=== PATIENT | female | born 1980 | race Caucasian/White ===

== ENCOUNTER 2016-12-19 12:50 | Emergency (ER) | payer MEDICARE ==
[~2016-12-19] VITALS: Ht 162.6 cm; Wt 143.8 kg
[~2016-12-19 12:50] MED LIST: ACYCLOVIR PO; ALBUTEROL17 GM INH; BACTRIM DS TABL1 TA1 PO; DICLOFENAC PO; DOXYCYCLINE HY100 M1 PO; FLEXERIL PO; FLEXERIL10 M1 PO; FLEXERIL10 MG PO; FLONASE16 GM; IBUPROFEN PO; IBUPROFEN800 MG PO; KEFLEX500 M1 PO; KEFLEX500 MG PO; MEDROL PO; MOBIC PO; NAPROSYN250 M1 PO; NAPROSYN500 MG PO; NEURONTIN300 MG PO; PEN-VEE K PO; PHENERGAN W/CO120 ML PO; ULTRAM PO; VICODIN 5/500 T1 TAB PO; ZITHROMAX1 G/PKT PO
[2016-12-19 14:40] LABS: URINE SOURCE CLEAN CATCH
[2016-12-19 14:46] LABS: URINE APPEARANCE TURBID; URINE BILIRUBIN NEG (NEG); URINE BLOOD 3+ (NEG); URINE COLOR YELLOW; URINE GLUCOSE NEG (NEG); URINE KETONE NEG (NEG); URINE LEUKOCYTE ESTERASE 3+ (NEG); URINE NITRATE NEG (NEG); URINE PROTEIN 2+ (NEG); URINE SPECIFIC GRAVITY 1.022 (1.003-1.035); URINE UROBILINOGEN 0.2 MG/DL (NEG)
[2016-12-19 14:48] LABS: CULTURE INDICATED? YES; URBCS1 AUWI 100-200 /[HPF] (0-2); URINE BACTERIA AUWI 4+ (NEGATIVE); URINE SQUAMOUS EPITHELIAL CELL MOD /[HPF]; UWBCS1 AUWI INNUM (0-5)
[2016-12-19 15:09] LABS: BASOPHIL# 0.1 X10e3 (0-0.3); BASOPHIL% 0.7 % (0-2.5); EOSINOPHIL# 0.2 X10e3 (0-0.7); EOSINOPHIL% 2.5 % (0.0-7.0); HEMATOCRIT 38.9 % (35.0-45.0); HEMOGLOBIN 13.1 gm/dL (12.0-16.0); LYMPHOCYTE% 32.1 % (17.0-45.0); MEAN CELL VOLUME 86.8 FL (83-96); MEAN CORPUSCULAR HEMOGLOBIN 29.2 PG (28-34); MEAN CORPUSCULAR HGB CONC 33.7 g/dL (30-36); MEAN PLATELET VOLUME 8.8 FL (6.5-11.5); MONOCYTE# 0.6 X10e3 (0-1.0); MONOCYTE% 6.1 % (3.0-12.0); NEUTROPHIL# 5.4 X10e3 (1.5-7.1); NEUTROPHIL% 58.6 % (40-75); PLATELET COUNT 216 X10e3 (140-420); RED BLOOD COUNT 4.48 X10e (3.90-5.30); WHITE BLOOD COUNT 9.2 X10e3 (4.0-10.5)
[2016-12-19 15:10] LABS: DIFF IND NO
[2016-12-19 15:19] LABS: BUN/CREATININE RATIO 22.85; CALCIUM SERUM 8.9 mg/dL (8.4-10.2); CREATININE SERUM 0.7 mg/dL (0.6-1.4); GLOM FILT RATE Estimated 109.9 mL/min (>60); POTASSIUM 3.9 mmol/L (3.5-5.1)
[2016-12-22 10:43] LABS: CHLAMYDIA TRACH Not Detected (Not Detected); N GONOR Not Detected (Not Detected)
== END 2016-12-19 15:35 | disposition home or self-care (01) ==
LOC: CFTX 12:50 → CED 12:50 → CFTX 13:36
PROVIDERS: Nurse Practitioner
DX: N30.91 Cystitis, unspecified with hematuria (principal); Z90.721 Acquired absence of ovaries, unilateral
CPT/HCPCS: 36415; 80048; 81003; 82947; 84703; 85025; 87086; 87088; 87186; 87491; 87591; 87808; 87905; 99284